=== PATIENT | female | born 1970 | race Caucasian/White ===

== ENCOUNTER 2021-01-07 21:05 | Emergency (ER) | payer OTHER, BC ==
[2021-01-07] MEDS ORDERED: Lidocaine 4% Cream 5 GM TUBE w/ Tegaderm ONE (21:53)
[2021-01-07] MEDS ORDERED: Ondansetron PF 4 MG/2 ML Vial ONE (21:53)
[2021-01-07] MEDS ORDERED: Morphine 4 MG/ML VIAL ONE (21:53)
[2021-01-07] MEDS ORDERED: Lidocaine 1% (PF) 30 ML VIAL ONE (21:54)
[2021-01-07] MEDS ORDERED: Boostrix 0.5 ML (Tdap) VIAL ONE (21:54)
[2021-01-07] MEDS ORDERED: Rabies Vaccine Human 2.5 UNITS VIAL IM ONE (22:00)
[2021-01-08] MEDS ORDERED: HYDROcodone/Acetaminophen 10/325 mg Tablet ONE (00:09)
[2021-01-08] MEDS ORDERED: Bacitracin 1 PK ONE (00:17)
== END 2021-01-08 01:10 | disposition home or self-care (01) ==
LOC: ERS 21:05
DX: S81.852A Open bite, left lower leg, initial encounter (principal); S01.85XA Open bite of other part of head, initial encounter; S51.852A Open bite of left forearm, initial encounter; Z23 Encounter for immunization; W54.0XXA Bitten by dog, initial encounter
CPT/HCPCS: 12002; 90376; 90471; 90472; 90675; 90715; 96372; 96374; 96375; J0690; J2001; J2270; J2405